=== PATIENT | female | born 1960 | race Caucasian/White ===

== ENCOUNTER → 2021-01-16 | Day surgery (SDC) | payer MEDICARE, SELFPAY ==
[~2021-01-16] MED LIST: CARAFATE 1 GM TA1 GM PO; CETIRIZINE HCL10 MG PO; CRESTOR20 MG PO; DIFLUCAN150 MG PO; LOSARTAN POTAS100 MG PO; MACRODANTIN100 MG PO; METFORMIN HCL500 MG PO; ONDANSETRON HCL8 MG PO; PROTONIX 40 MG40 M1 PO; VITAMIN D21250 MCG PO; ZOFRAN 4 MG TAB4 MG PO
== END | disposition home or self-care (01) ==
LOC: OR 06:32
DX: K29.50 Unspecified chronic gastritis without bleeding (principal); K44.9 Diaphragmatic hernia without obstruction or gangrene; K57.30 Diverticulosis of large intestine without perforation or abscess without bleeding; K63.3 Ulcer of intestine; I10 Essential (primary) hypertension; E78.00 Pure hypercholesterolemia, unspecified; E10.51 Type 1 diabetes mellitus with diabetic peripheral angiopathy without gangrene; I70.219 Atherosclerosis of native arteries of extremities with intermittent claudication, unspecified extremity; K21.9 Gastro-esophageal reflux disease without esophagitis; F17.210 Nicotine dependence, cigarettes, uncomplicated; Z88.0 Allergy status to penicillin; Z79.82 Long term (current) use of aspirin; Z79.899 Other long term (current) drug therapy
CPT/HCPCS: 82962; J2250; J2704; J3010; J7120

== ENCOUNTER 2021-02-11 20:29 | Emergency (ER) | payer MEDICARE, SELFPAY ==
[~2021-02-11 20:29] MED LIST changes: -DIFLUCAN150 MG PO; -MACRODANTIN100 MG PO; -ZOFRAN 4 MG TAB4 MG PO
[2021-02-11 21:58] LABS: HEMOGLOBIN 12.2 gm/dl (12.3-15.3); RED BLOOD COUNT 4.33 M/UL (4.00-5.10); WHITE BLOOD COUNT 8.6 K/UL (4.5-11.0)
[2021-02-11 22:21] LABS: BUN/CREATININE RATIO 17 (0-10)
[2021-02-12] MEDS ORDERED: ZOFRAN 4 MG TAB4 MG PO (01:22)
[2021-02-12] MEDS ORDERED: MACRODANTIN100 MG PO (01:22)
[2021-02-12] MEDS ORDERED: DIFLUCAN150 MG PO (01:22)
== END 2021-02-12 01:51 | disposition home or self-care (01) ==
LOC: ER1 20:29
PROVIDERS: Emergency Medicine
DX: I71.4 Abdominal aortic aneurysm, without rupture (principal); I73.9 Peripheral vascular disease, unspecified; I74.5 Embolism and thrombosis of iliac artery; N39.0 Urinary tract infection, site not specified; Z20.822 Contact with and (suspected) exposure to COVID-19
CPT/HCPCS: 71045; 80053; 81001; 82550; 82553; 83605; 83690; 84484; 85025; 85610; 85730; 93005; 96365; 99284; J0696; Q9967; U0002

== ENCOUNTER → 2021-04-12 | Outpatient (CLI) | payer MEDICARE, SELFPAY ==
[~2021-04-12] MED LIST changes: +DIFLUCAN150 MG PO; +MACRODANTIN100 MG PO; +ZOFRAN 4 MG TAB4 MG PO
== END ==
LOC: US 14:44
DX: K11.8 Other diseases of salivary glands (principal)
CPT/HCPCS: 76536

== ENCOUNTER → 2021-05-18 | Outpatient (CLI) | payer MEDICARE, SELFPAY ==
[2021-05-18 13:52] LABS: BUN/CREATININE RATIO 17 (0-10)
== END ==
LOC: CT 12:57
PROVIDERS: Surgery
DX: I71.4 Abdominal aortic aneurysm, without rupture (principal); I70.203 Unspecified atherosclerosis of native arteries of extremities, bilateral legs
CPT/HCPCS: 36415; 75635; 80053; Q9967

== ENCOUNTER 2021-05-27 13:50 | Emergency (ER) | payer MEDICARE, OTHER ==
[2021-05-27 14:28] LABS: RED BLOOD COUNT 2.18 M/UL (4.00-5.10); WHITE BLOOD COUNT 12.5 K/UL (4.5-11.0)
[2021-05-27 14:47] LABS: BUN/CREATININE RATIO 13 (0-10)
[2021-05-27 23:36] LABS: HEMOGLOBIN 8.8 gm/dl (12.3-15.3); RED BLOOD COUNT 3.08 M/UL (4.00-5.10); WHITE BLOOD COUNT 17.8 K/UL (4.5-11.0)
== END 2021-05-28 01:30 | disposition short-term general hospital (02) ==
LOC: ER1 13:50
PROVIDERS: Emergency Medicine; Physician Assistant
DX: K92.2 Gastrointestinal hemorrhage, unspecified (principal); D64.9 Anemia, unspecified; E87.6 Hypokalemia; E87.1 Hypo-osmolality and hyponatremia; Z20.822 Contact with and (suspected) exposure to COVID-19
CPT/HCPCS: 36430; 71045; 80053; 81001; 82272; 82550; 82553; 83690; 83874; 84484; 85025; 85027; 85610; 85730; 86850; 86900; 86901; 86920; 93005; 96374; 96375; 99285; C9113; J2405; P9016; Q9967; U0002

== ENCOUNTER → 2022-07-23 | Outpatient (CLI) | payer MEDICARE | LOC: CT 13:30 | DX: I71.9 Aortic aneurysm of unspecified site, without rupture (principal); I70.219 Atherosclerosis of native arteries of extremities with intermittent claudication, unspecified extremity; K55.059 Acute (reversible) ischemia of intestine, part and extent unspecified; F17.219 Nicotine dependence, cigarettes, with unspecified nicotine-induced disorders; Z79.01 Long term (current) use of anticoagulants; Z79.899 Other long term (current) drug therapy | CPT/HCPCS: 36415; 82565; 84520; Q9967 ==